=== PATIENT | male | born 1970 | race Caucasian/White ===

== ENCOUNTER 2019-07-28 07:37 | Emergency (ER) | payer SELFPAY ==
[2019-07-28] VITALS (9 sets, daily range): BP systolic 131–136; BP diastolic 72–83; PULSE 82–101; RESP 16–22; TEMP 37.1; O2SAT 94–95
--- NOTE | ~2019-07-28 | XR_ITS ---
EXAMINATION: XR chest 2V 07/28/2019 08:02 INDICATION: Cough and congestion PROCEDURE: 2 view chest COMPARISON: 06/23/2012 FINDINGS: The lungs are clear. The cardiomediastinal silhouette is within normal limits. There are no pleural effusions. There is no pneumothorax suspected. IMPRESSION: 1: NO ACUTE CARDIOPULMONARY DISEASE. Reviewed, dictated and finalized at location A.
--- NOTE | 2019-07-28 08:05 | ED.URI ---
HPI - URI/Sore Throat General Chief Complaint: Upper Respiratory Infection Stated Complaint: diff breathing Time Seen by Provider: 07/28/19 07:47 Source: patient Mode of arrival: ambulatory Limitations: no limitations History of Present Illness HPI Narrative: Pt is a 49 y/o male who presents to ED with c/o SOB for 9 days. He reports associated productive cough with green phlegm and wheezing. He notes that he started off with a fever and had diarrhea but those Sx have subsided. Pt denies N/V. He states that his spouse was sick with bronchitis, URI, and a viral infection. Pt is a 1PPD smoker and he denies any foreign or domestic travel. MD elicited complaint: cough and other (SOB) Onset (ago): day(s) (9) Consistency: progressively worsening Description of mucous: green Context: sick contacts (spouse) Associated symptoms: other (wheezing) Related Data Home Medications Medication Instructions Recorded Confirmed guaifenesin [Mucinex] 600 mg PO Q12H PRN 07/28/19 Allergies Allergy/AdvReac Type Severity Reaction Status Date / Time No Known Allergies Allergy Verified 07/28/19 07:52 Review of Systems Review of Systems: All systems reviewed & are unremarkable except as noted in HPI and below Constitutional: Constitutional: Reports fever(s) Respiratory: Respiratory: Reports cough, Reports dyspnea and Reports wheezing Gastrointestinal: Gastrointestinal: Reports diarrhea, Denies nausea and Denies vomiting PMFSH Past Medical History Medical History (Updated 07/28/19 @ 12:23 by Jackson Nielsen DO) No significant past medical history Surgical History Surgical History (Updated 07/28/19 @ 08:16 by Ingrid Ruelas) History of nasal surgery lt Social History Social History (Updated 07/28/19 @ 08:17 by Ingrid Ruelas) Smoking packs per day: 1 Smoking cigarettes per day: 20.0 Smoking status: Heavy tobacco smoker Alcohol intake: never Exam Narrative: Exam Narrative: APPEARANCE: No acute distress, nontoxic, resting in bed EYES: EOMI HEENT: Normocephalic, atraumatic, TMs clear bilaterally, bilateral nares boggy, mild erythema no exudate posterior pharynx RESPIRATORY: No respiratory distress wheezing throughout the bilateral lung salter, no rhonchi CARDIOVASCULAR: Regular rate and rhythm without murmurs rubs or gallops. ABDOMINAL: Soft, nontender, nondistended, no rebound or guarding MUSCULOSKELETAl: Moves all extremities. No clubbing, cyanosis or edema. NEURO: Awake and alert. Following commands, speech normal, no focal deficits SKIN:: Warm, dry. No rashes lesions or abrasions PSYCHIATRIC: Normal affect/mood, Course Course Emergency Course: Following breathing treatments patient states he is feeling better repeat lung exam shows mild wheezing upper lung salter it is improved with increased aeration. Patient was walking pulse ox states he felt fine with oxygen saturations stayed in the low 90s Discussed with patient results of workup and diagnosis. Discussed need for follow-up with primary care, proper use of medication, and reasons to return to the emergency department. Patient understands and agrees to current treatment plan Vital Signs Vital signs: Vital Signs Temperature 98.7 F 07/28/19 07:48 Pulse Rate 87 07/28/19 07:48 Respiratory Rate 22 H 07/28/19 07:48 Blood Pressure 131/83 07/28/19 07:48 Pulse Oximetry 94 07/28/19 07:48 Temperature 98.7 F 07/28/19 07:48 Pulse Rate 96 07/28/19 10:57 Respiratory Rate 20 07/28/19 10:57 Blood Pressure 134/80 07/28/19 10:24 Pulse Oximetry 94 07/28/19 10:24 MDM - URI/Sore Throat Lab Data Labs: Influenza A Screen Negative Reference Range: Negative Influenza B Screen Negative Reference Range: Negative Imaging Data Radiologist's impression: ITS Impressions Chest X-Ray 07/28/19 08:08 IMPRESSION: 1: NO ACUTE CARDIOPULMONARY DISEASE. Discharge Plan Dis
[2019-07-28] MEDS: ALBUTEROL SULFATE NEB 2.5 MG/0.5 ML INH 5 MG INHALATION ×3 (08:17→10:49)
[2019-07-28] MEDS: IPRATROPIUM BR 0.02% INH SOLN 0.5 MG/2.5 ML VIAL INHALATION ×3 (08:17→10:49)
[2019-07-28] MEDS: predniSONE 20 MG TABLET 60 MG PO (08:18)
== END 2019-07-28 12:44 | disposition home or self-care (01) ==
PROVIDERS: Emergency Provider Emergency Medicine
DX: J06.9 Acute upper respiratory infection, unspecified (principal); F17.200 Nicotine dependence, unspecified, uncomplicated
CPT/HCPCS: 71046; 87804; 94640; 99285; J7512